=== PATIENT | female | born 1985 | race Caucasian/White ===

== ENCOUNTER 2017-05-22 11:09 | Emergency (ER) | payer OTHER ==
[2017-05-22] MEDS ORDERED: ONDANSETRON HCL INJ/PF 4 MG/2 ML SDV IV ONE ×2 (11:23→13:11)
[2017-05-22] MEDS ORDERED: NORMAL SALINE 1000 ML 1,000 ML IV ONE ×2 (11:23→12:42)
[2017-05-22] MEDS ORDERED: METOCLOPRAMIDE HCL INJ/PF 10 MG/2 ML SDV IV ONE ×2 (11:30→12:40)
--- NOTE | 2017-05-22 11:33 | ER Document Report ---
ED General - General Chief Complaint: Abdominal Cramping Stated Complaint: NAUSEA/VOMITING Time Seen by Provider: 05/22/17 11:23 Mode of Arrival: Ambulatory Information source: Patient Notes: 31-year-old female presents with complaints of nausea vomiting diarrhea since last night. Patient notes multiple episodes of vomiting and diarrhea. Patient ate some steak kebab last night and believes this may have caused his symptoms. Denies any fevers TRAVEL OUTSIDE OF THE [place] IN LAST 30 DAYS: No - HPI Onset: Yesterday Onset/Duration: Sudden Quality of pain: Cramping Severity: Mild Pain Level: 1 Associated symptoms: Diarrhea, Nausea, Vomiting Exacerbated by: Denies Relieved by: Denies Similar symptoms previously: No Recently seen / treated by doctor: No - Related Data Allergies/Adverse Reactions: No Known Drug Allergies Allergy (Verified 02/02/13 13:43) Past Medical History - Social History Smoking Status: Never Smoker Cigarette use (# per day): No Chew tobacco use (# tins/day): No Smoking Education Provided: No Family History: Reviewed & Not Pertinent Patient has suicidal ideation: No Patient has homicidal ideation: No Renal/ Medical History: Denies: Hx Peritoneal Dialysis Past Surgical History: Reports: Hx Dilation and Curettage - and LEEP, colpo in 2001, Hx Orthopedic Surgery - right shoulder, right wrist - Immunizations Immunizations up to date: Yes Hx Diphtheria, Pertussis, Tetanus Vaccination: Yes Review of Systems - Review of Systems Notes: REVIEW OF SYSTEMS: CONSTITUTIONAL : Denies fever, chills, or sweats. Denies recent illness. EENT: Denies eye, ear, throat, or mouth pain or symptoms. Denies nasal or sinus congestion or discharge. Denies throat, tongue, or mouth swelling or difficulty swallowing. CARDIOVASCULAR: Denies chest pain. Denies palpitations or racing or irregular heart beat. Denies ankle edema. RESPIRATORY: Denies cough, cold, or chest congestion. Denies shortness of breath, difficulty breathing, or wheezing. GASTROINTESTINAL: Admits to nausea vomiting diarrhea abdominal cramping GENITOURINARY: Denies difficulty urinating, painful urination, burning, frequency, blood in urine, or discharge. FEMALE GENITOURINARY: Denies vaginal bleeding, heavy or abnormal periods, irregular periods. Denies vaginal discharge or odor. MUSCULOSKELETAL: Denies back or neck pain or stiffness. Denies joint pain or swelling. SKIN: Denies rash, lesions or sores. HEMATOLOGIC : Denies easy bruising or bleeding. LYMPHATIC: Denies swollen, enlarged glands. NEUROLOGICAL: Denies confusion or altered mental status. Denies passing out or loss of consciousness. Denies dizziness or lightheadedness. Denies headache. Denies weakness or paralysis or loss of use of either side. Denies problems with gait or speech. Denies sensory loss, numbness, or tingling. Denies seizures. PSYCHIATRIC: Denies anxiety or stress. Denies depression, suicidal ideation, or homicidal ideation. ALL OTHER SYSTEMS REVIEWED AND NEGATIVE. PHYSICAL EXAMINATION: GENERAL: Pale appearing female no significant distress HEAD: Atraumatic, normocephalic. EYES: Pupils equal round and reactive to light, extraocular movements intact, conjunctiva are normal. LUNGS: Breath sounds clear to auscultation bilaterally and equal. No wheezes rales or rhonchi. HEART: Noted to be mildly tachycardic ABDOMEN: Soft, nontender, nondistended abdomen. No guarding, no rebound. No masses appreciated. Female : deferred Musculoskeletal: Normal range of motion, no pitting or edema. No cyanosis. NEUROLOGICAL: Cranial nerves grossly intact. Normal speech, normal gait. Normal sensory, motor exams PSYCH: Normal mood, normal affect. SKIN: Warm, Dry, normal turgor, no rashes or lesions noted. Dictation was performed using [employer] voice recognition software Physical Exam - Vital signs Vitals: Temp Pulse Resp BP Pulse Ox 97.9 F 105 H 21 H 128/80 H 100 05/22/17 11:18 05/22/17 11:18 05/22/17 11:18 05/22/17 11:18 05/22/17 11:18 Course - Re-evaluation Re-evalutation: 05/22/17 11:34 Patient has probable viral GI symptoms, lab work and IV fluids nausea control pending 05/22/17 15:58 Notes symptoms have improved significantly, will DC home with close follow-up After performing a Medical Screening Examination, I estimate there is LOW risk for ACUTE APPENDICITIS, BOWEL OBSTRUCTION, ACUTE CHOLECYSTITIS, PERFORATED DIVERTICULITIS, INCARCERATED HERNIA, PANCREATITIS, PELVIC INFLAMMATORY DISEASE, PERFORATED ULCER, ECTOPIC , or TUBO-OVARIAN ABSCESS, thus I consider the discharge disposition reasonable. Also, there is no evidence or peritonitis , sepsis, or toxicity. I have reevaluated this patient multiple times and no significant life threatening changes are noted. The patient and I have discussed the diagnosis and risks, and we agree with discharging home with close follow-up with the understanding that symptoms and presentations can change. We also discussed returning to the Emergency Department immediately if new or worsening symptoms occur. We have discussed the symptoms which are most concerning (e.g., bloody stool, fever, changing or worsening pain, vomiting) that necessitate immediate return. - Vital Signs Vital signs: Temp Pulse Resp BP Pulse Ox 99.8 F 89 12 106/54 L 94 05/22/17 15:23 05/22/17 15:23 05/22/17 15:23 05/22/17 15:23 05/22/17 15:23 - Laboratory Result Diagrams: 05/22/17 13:20 05/22/17 13:20 Laboratory results interpreted by me: 05/22/17 05/22/17 05/22/17 13:20 13:20 14:28 WBC 11.8 H Seg Neutrophils % 91.4 H Lymphocytes % 5.4 L Monocytes % 2.7 L Absolute Neutrophils 10.8 H Chloride 111 H Carbon Dioxide 21 L Calcium 8.1 L Urine Ketones 20 H Urine Blood SMALL H Discharge - Discharge Clinical Impression: Nausea vomiting and diarrhea Abdominal pain Qualifiers: Abdominal location: generalized Qualified Code(s): R10.84 - Generalized abdominal pain Condition: Stable Disposition: HOME, SELF-CARE Instructions: Abdominal Pain ([facility]) Additional Instructions: Follow up with your physician tomorrow for further care or return to the ED IMMEDIATELY if symptoms worsen or new concerns occur. If you cannot afford to follow up with your primary care physician a list of low cost clinics have been provided at the end of your discharge papers as well. Prescriptions: Ondansetron HCl [Zofran 8 mg Tablet] 8 mg PO Q8HP PRN #30 tablet PRN Reason: Metoclopramide HCl [Reglan 10 mg Tablet] 1 - 2 tab PO ASDIR PRN #25 tablet PRN Reason:
[2017-05-22] MEDS ORDERED: DICYCLOMINE HCL INJ 20 MG/2 ML AMPULE IM ONE (11:35)
[2017-05-22] MEDS: NORMAL SALINE 1000 ML 1,000 ML IV PRN ×2 (11:49→12:57)
[2017-05-22] MEDS ORDERED: PROMETHAZINE HCL 25 MG TABLET PO ONE (12:25)
[2017-05-22] MEDS ORDERED: PROMETHAZINE HCL INJ 25 MG/1 ML VIAL IM ONE (12:39)
[2017-05-22 13:45] LABS: ABSOLUTE LYMPHOCYTES (AUTO) 0.6 10^3/uL (0.5-4.7); ABSOLUTE MONOCYTES (AUTO) 0.3 10^3/uL (0.1-1.4); ABSOLUTE NEUT (AUTO) 10.8 10^3/uL (1.7-8.2); BASOPHILS % (AUTO) 0.1 % (0-2); EOSINOPHILS % (AUTO) 0.4 % (0-6); HEMATOCRIT 40.5 % (36.0-47.0); HEMOGLOBIN 13.4 g/dL (12.0-15.5); HGB HCT DIFFERENCE -0.3; LYMPHOCYTES % (AUTO) 5.4 % (13-45); MEAN CORPUSCULAR HEMOGLOBIN 28.7 pg (27.0-33.4); MEAN CORPUSCULAR HGB CONC 33.2 g/dL (32.0-36.0); MEAN CORPUSCULAR VOLUME 86 fl (80-97); MONOCYTES % (AUTO) 2.7 % (3-13); RED BLOOD COUNT 4.68 10^6/uL (3.72-5.28); RED CELL DISTRIBUTION WIDTH 12.4 % (11.5-14.0); SEGMENTED NEUTROPHILS % (AUTO) 91.4 % (42-78); WHITE BLOOD COUNT 11.8 10^3/uL (4.0-10.5)
[2017-05-22 13:50] LABS: ALANINE AMINOTRANSFERASE 40 U/L (9-52); ALBUMIN 3.9 g/dL (3.5-5.0); ALKALINE PHOSPHATASE 74 U/L (38-126); ANION GAP 11 (5-19); ASPARTATE AMINO TRANSFERASE 27 U/L (14-36); BILIRUBIN,DIRECT 0.2 mg/dL (0.0-0.4); BILIRUBIN,TOTAL 0.8 mg/dL (0.2-1.3); BLOOD UREA NITROGEN 13 mg/dL (7-20); CALCIUM 8.1 mg/dL (8.4-10.2); CARBON DIOXIDE 21 mmol/L (22-30); CHLORIDE 111 mmol/L (98-107); CREATININE RESULT 0.57 mg/dL (0.52-1.25); GLUCOSE 98 mg/dL (75-110); LIPASE 63.8 U/L (23-300); POTASSIUM 4.4 mmol/L (3.6-5.0); SODIUM 142.7 mmol/L (137-145)
[2017-05-22 15:25] VITALS: BP 106/54
[2017-05-22 15:26] LABS: APPEARANCE,URINE CLEAR; BILIRUBIN,URINE NEGATIVE (NEGATIVE); GLUCOSE, URINE NEGATIVE (NEGATIVE); KETONES,URINE 20 mg/dL (NEGATIVE); LEUKOCYTE ESTERASE,URINE NEGATIVE (NEGATIVE); NITRITE,URINE NEGATIVE (NEGATIVE); PROTEIN,URINE NEGATIVE (NEGATIVE); URINE SPECIFIC GRAVITY 1.009; UROBILINOGEN,URINE NEGATIVE mg/dL (<2.0)
== END 2017-05-22 16:10 | disposition home or self-care (01) ==
LOC: ER 11:09
DX: R11.2 Nausea with vomiting, unspecified (principal); R19.7 Diarrhea, unspecified; R10.84 Generalized abdominal pain; R00.0 Tachycardia, unspecified
CPT/HCPCS: 96376; 99284; 96372; 96374; 96375; 36415; 83690; 85025; 81025; 80053; 81001; J0500; J2765; J2550; J2405; J7030

== ENCOUNTER 2017-09-24 21:44 | Emergency (ER) | payer OTHER ==
[2017-09-24] MEDS ORDERED: NORMAL SALINE 1000 ML 1,000 ML IV ONE (22:12)
[2017-09-24] MEDS ORDERED: HYDROMORPHONE HCL INJ/PF 2 MG/ML AMPULE IV ONE (22:12)
[2017-09-24] MEDS ORDERED: ONDANSETRON HCL INJ/PF 4 MG/2 ML SDV IV ONE (22:12)
--- NOTE | 2017-09-24 22:13 | ER Document Report ---
ED GI/ - General Chief Complaint: Epigastric Pain Stated Complaint: RIGHT UPPER QUADRANT PAIN Time Seen by Provider: 09/24/17 21:59 Mode of Arrival: Ambulatory Information source: Patient Notes: Patient presents complaining of right upper quadrant abdominal pain that started suddenly around 7 PM after eating. Patient does complain of some nausea. Patient denies any vomiting or diarrhea. Patient states that pain will radiate to her back. Patient denies any fever or cough. Patient does state that she feels like she may have had a urinary tract infection last week for which she took a single dose of Bactrim but had an allergic reaction and did not take any more of the antibiotic. TRAVEL OUTSIDE OF THE [place] IN LAST 30 DAYS: No - HPI Patient complains to provider of: Abdominal pain. No: Diarrhea, Flank pain, Vomiting Onset: This evening Timing/Duration: Sudden Quality of pain: Sharp Pain Level: 4 Location: RUQ Vaginal bleeding (Compared to normal period): None Associated symptoms: Nausea. denies: Diarrhea, Fever, Loss of appetite, Urinary hesitancy, Urinary frequency, Urinary retention, Urinary urgency, Vomiting Exacerbated by: Denies Relieved by: Denies Similar symptoms previously: No Recently seen / treated by doctor: No - Related Data Allergies/Adverse Reactions: Penicillins Allergy (Verified 09/24/17 21:50) sulfamethoxazole [From Bactrim] Allergy (Verified 09/24/17 21:50) trimethoprim [From Bactrim] Allergy (Verified 09/24/17 21:50) Past Medical History - General Information source: Patient Last Menstrual Period: 08/31/2017 - Social History Smoking Status: Current Every Day Smoker Frequency of alcohol use: None Drug Abuse: None Occupation: Nursing Lives with: Family Family History: Reviewed & Not Pertinent Patient has suicidal ideation: No Patient has homicidal ideation: No Renal/ Medical History: Denies: Hx Peritoneal Dialysis Musculoskeltal Medical History: Reports Hx Arthritis - RA Past Surgical History: Reports: Hx Dilation and Curettage - and LEEP, colpo in 2001, Hx Orthopedic Surgery - right shoulder, right wrist - Immunizations Immunizations up to date: Yes Hx Diphtheria, Pertussis, Tetanus Vaccination: Yes Review of Systems - Review of Systems Constitutional: Recent illness - UTI. denies: Fever EENT: No symptoms reported Cardiovascular: No symptoms reported. denies: Chest pain Respiratory: No symptoms reported. denies: Cough, Short of breath Gastrointestinal: Abdominal pain, Nausea. denies: Diarrhea, Vomiting Genitourinary: Dysuria. denies: Flank pain Female Genitourinary: No symptoms reported Musculoskeletal: Back pain - Abdominal pain will occasionally radiate to the back Skin: No symptoms reported Hematologic/Lymphatic: No symptoms reported Neurological/Psychological: No symptoms reported Physical Exam - Vital signs Vitals: Temp Pulse Resp BP Pulse Ox 98.4 F 93 20 132/86 H 100 09/24/17 21:48 09/24/17 21:48 09/24/17 21:48 09/24/17 21:48 09/24/17 21:48 - General General appearance: Appears well, Alert In distress: None - HEENT Head: Normocephalic, Atraumatic Eyes: Normal Conjunctiva: Normal Nasal: Normal Mouth/Lips: Normal Mucous membranes: Dry Neck: Normal, Supple. No: Lymphadenopathy - Respiratory Respiratory status: No respiratory distress Chest status: Nontender Breath sounds: Normal. No: Rales, Rhonchi, Stridor, Wheezing Chest palpation: Normal - Cardiovascular Rhythm: Regular Heart sounds: S1 appreciated, S2 appreciated Murmur: No - Abdominal Inspection: Normal Distension: No distension Bowel sounds: Normal Tenderness: Tender - RUQ Organomegaly: No organomegaly - Back Back: Normal, Nontender. No: CVA tenderness - Extremities General upper extremity: Normal inspection, Normal ROM General lower extremity: Normal inspection, Normal ROM - Neurological Neuro grossly intact: Yes Cognition: Normal [place] Coma Scale Eye Opening: Spontaneous [place] Coma Scale Verbal: Oriented Je Coma Scale Motor: Obeys Commands [place] Coma Scale Total: 15 - Psychological Associated symptoms: Normal affect, Normal mood - Skin Skin Temperature: Warm Skin Moisture: Dry Skin Color: Normal Course - Re-evaluation Re-evalutation: 09/25/17 Patient presents with abdominal pain without signs of peritonitis or other life- threatening or serious etiology. Patient appears stable for discharge and has been instructed to return immediately if the symptoms worsen in any way for reevaluation. - Vital Signs Vital signs: Temp Pulse Resp BP Pulse Ox 98.4 F 93 16 111/76 99 09/24/17 21:48 09/24/17 21:48 09/25/17 00:01 09/25/17 00:00 09/25/17 00:01 - Laboratory Result Diagrams: 09/24/17 22:20 09/24/17 22:20 Laboratory results interpreted by me: 09/24/17 09/24/17 22:20 22:34 Potassium 3.5 L BUN 6 L Urine Protein 30 H Urine Urobilinogen 2.0 H Ur Leukocyte Esterase MODERATE H Labs- Entire Visit 09/24/17 09/24/17 09/24/17 22:20 22:20 22:20 WBC 7.6 RBC 4.48 Hgb 13.4 Hct 38.5 MCV 86 MCH 29.8 MCHC 34.7 RDW 12.6 Plt Count 253 Seg Neutrophils % 51.4 Lymphocytes % 39.7 Monocytes % 6.9 Eosinophils % 1.3 Basophils % 0.7 Absolute Neutrophils 3.9 Absolute Lymphocytes 3.0 Absolute Monocytes 0.5 Absolute Eosinophils 0.1 Absolute Basophils 0.1 Sodium 144.7 Potassium 3.5 L Chloride 107 Carbon Dioxide 28 Anion Gap 10 BUN 6 L Creatinine 0.62 Est GFR ( Amer) > 60 Est GFR (Non-Af Amer) > 60 Glucose 89 Calcium 9.3 Total Bilirubin 0.6 Direct Bilirubin 0.3 Indirect Bilirubin Not Reportable Neonat Total Bilirubin Not Reportable AST 22 ALT 43 Alkaline Phosphatase 50 Total Protein 6.5 Albumin 3.9 Lipase 74.1 Serum HCG, Qual NEGATIVE Urine Color Urine Appearance Urine pH Ur Specific [place] Urine Protein Urine Glucose (UA) Urine Ketones Urine Blood Urine Nitrite Urine Bilirubin Urine Urobilinogen Ur Leukocyte Esterase Urine WBC (Auto) Urine RBC (Auto) Squamous Epi Cells Auto Urine Mucus (Auto) Urine Ascorbic Acid 09/24/17 22:34 WBC RBC Hgb Hct MCV MCH MCHC RDW Plt Count Seg Neutrophils % Lymphocytes % Monocytes % Eosinophils % Basophils % Absolute Neutrophils Absolute Lymphocytes Absolute Monocytes Absolute Eosinophils Absolute Basophils Sodium Potassium Chloride Carbon Dioxide Anion Gap BUN Creatinine Est GFR ( Amer) Est GFR (Non-Af Amer) Glucose Calcium Total Bilirubin Direct Bilirubin Indirect Bilirubin Neonat Total Bilirubin AST ALT Alkaline Phosphatase Total Protein Albumin Lipase Serum HCG, Qual Urine Color YELLOW Urine Appearance SLIGHTLY-CLOUDY Urine pH 5.0 Ur Specific [place] 1.025 Urine Protein 30 H Urine Glucose (UA) NEGATIVE Urine Ketones NEGATIVE Urine Blood NEGATIVE Urine Nitrite NEGATIVE Urine Bilirubin NEGATIVE Urine Urobilinogen 2.0 H Ur Leukocyte Esterase MODERATE H Urine WBC (Auto) 19 Urine RBC (Auto) 2 Squamous Epi Cells Auto 7 Urine Mucus (Auto) MOD Urine Ascorbic Acid NEGATIVE - Diagnostic Test Radiology reviewed: Reports reviewed Discharge - Discharge Clinical Impression: Nausea, Hypokalemia Abdominal pain Qualifiers: Abdominal location: right upper quadrant Qualified Code(s): R10.11 - Right upper quadrant pain UTI (urinary tract infection) Qualifiers: Urinary tract infection type: site unspecified Hematuria presence: without hematuria Qualified Code(s): N39.0 - Urinary tract infection, site not specified Condition: Stable Disposition: HOME, SELF-CARE Instructions: Abdominal Pain ([facility]), Antinausea Medication ([facility]), Cephalexin ( [facility]), Hypokalemia ([facility]), Urinary Tract Infection ([facility]) Additional Instructions: Return immediately for any new or worsening symptoms Followup with your primary care provider, call Tuesday to make a followup appointment It is possible you may need additional imaging studies to further evaluate the functioning of your gallbladder. Prescriptions: Cephalexin Monohydrate [Keflex 500 mg Capsule] 500 mg PO BID 7 Days capsule Dicyclomine HCl [Bentyl 20 mg Tablet] 20 mg PO QID PRN #10 tablet PRN Reason: Ondansetron HCl [Zofran 4 mg Tablet] 1 - 2 tab PO Q6 PRN #15 tablet PRN Reason: Referrals: EDIE PINK FNP [Primary Care Provider] - 09/26/17
[2017-09-24 22:31] LABS: ABSOLUTE BASOPHILS # (AUTO) 0.1 10^3/uL (0.0-0.2); ABSOLUTE EOSINOPHILS # (AUTO) 0.1 10^3/uL (0.0-0.6); ABSOLUTE MONOCYTES (AUTO) 0.5 10^3/uL (0.1-1.4); ABSOLUTE NEUT (AUTO) 3.9 10^3/uL (1.7-8.2); BASOPHILS % (AUTO) 0.7 % (0-2); EOSINOPHILS % (AUTO) 1.3 % (0-6); HEMATOCRIT 38.5 % (36.0-47.0); HEMOGLOBIN 13.4 g/dL (12.0-15.5); HGB HCT DIFFERENCE 1.7; LYMPHOCYTES % (AUTO) 39.7 % (13-45); MEAN CORPUSCULAR HEMOGLOBIN 29.8 pg (27.0-33.4); MEAN CORPUSCULAR HGB CONC 34.7 g/dL (32.0-36.0); MEAN CORPUSCULAR VOLUME 86 fl (80-97); MONOCYTES % (AUTO) 6.9 % (3-13); RED BLOOD COUNT 4.48 10^6/uL (3.72-5.28); RED CELL DISTRIBUTION WIDTH 12.6 % (11.5-14.0); SEGMENTED NEUTROPHILS % (AUTO) 51.4 % (42-78); WHITE BLOOD COUNT 7.6 10^3/uL (4.0-10.5)
[2017-09-24 22:52] LABS: ALANINE AMINOTRANSFERASE 43 U/L (9-52); ALBUMIN 3.9 g/dL (3.5-5.0); ALKALINE PHOSPHATASE 50 U/L (38-126); ANION GAP 10 (5-19); ASPARTATE AMINO TRANSFERASE 22 U/L (14-36); BILIRUBIN,DIRECT 0.3 mg/dL (0.0-0.4); BILIRUBIN,TOTAL 0.6 mg/dL (0.2-1.3); BLOOD UREA NITROGEN 6 mg/dL (7-20); CALCIUM 9.3 mg/dL (8.4-10.2); CARBON DIOXIDE 28 mmol/L (22-30); CHLORIDE 107 mmol/L (98-107); CREATININE RESULT 0.62 mg/dL (0.52-1.25); GLUCOSE 89 mg/dL (75-110); LIPASE 74.1 U/L (23-300); POTASSIUM 3.5 mmol/L (3.6-5.0); SODIUM 144.7 mmol/L (137-145); TOTAL PROTEIN 6.5 g/dL (6.3-8.2)
[2017-09-24 22:52] LABS: APPEARANCE,URINE SLIGHTLY-CLOUDY; BILIRUBIN,URINE NEGATIVE (NEGATIVE); GLUCOSE, URINE NEGATIVE (NEGATIVE); KETONES,URINE NEGATIVE (NEGATIVE); LEUKOCYTE ESTERASE,URINE MODERATE (NEGATIVE); NITRITE,URINE NEGATIVE (NEGATIVE); PROTEIN,URINE 30 mg/dL (NEGATIVE); URINE SPECIFIC GRAVITY 1.025
--- NOTE | 2017-09-24 23:10 | RADIOLOGY REPORT (SQ) ---
EXAM DESCRIPTION: U/S ABDOMEN LIMITED W/O DOP COMPLETED DATE/TIME: 09/24/2017 11:00 pm REASON FOR STUDY: RUQ pain COMPARISON: None. TECHNIQUE: Dynamic and static grayscale images acquired of the abdomen and recorded on PACS. Additio nal selected color Doppler and spectral images recorded. LIMITATIONS: None. FINDINGS: PANCREAS: No masses. Visualized pancreatic duct normal caliber. LIVER: No masses. Echotexture normal. LIVER VASCULATURE: Normal directional flow of the main portal vein and hepatic veins. GALLBLADDER: No stones. Normal wall thickness. No pericholecystic fluid. ULTRASOUND-DETECTED PHILLIPS'S SIGN: Negative. INTRAHEPATIC DUCTS AND COMMON DUCT: CBD and intrahepatic ducts normal caliber. No filling defects. AORTA: No aneurysm. RIGHT KIDNEY: Normal size. Normal echogenicity. No solid or suspicious masses. No hydronephrosis. No calcifications. PERITONEAL AND RIGHT PLEURAL SPACE: No ascites or effusions. OTHER: No other significant findings. IMPRESSION: NORMAL RIGHT UPPER QUADRANT ULTRASOUND. TECHNICAL DOCUMENTATION: JOB ID: [id number] [employer]- All Rights Reserved
[2017-09-25] MEDS ORDERED: CEPHALEXIN 500 MG CAPSULE PO ONE (00:12)
[2017-09-25] MEDS ORDERED: POTASSIUM CHLORIDE 10 MEQ TABLET.SA PO ONE (00:12)
[2017-09-25 00:23] VITALS: BP 111/76
== END 2017-09-25 00:30 | disposition home or self-care (01) ==
LOC: ER 21:44
DX: N39.0 Urinary tract infection, site not specified (principal); E87.6 Hypokalemia; R10.11 Right upper quadrant pain; R11.0 Nausea; F17.200 Nicotine dependence, unspecified, uncomplicated; Z88.0 Allergy status to penicillin; Z88.1 Allergy status to other antibiotic agents
CPT/HCPCS: 99284; 96361; 96374; 96375; 36415; 87086; 83690; 84703; 85025; 80053; 81001; 76705; J1170; J2405; J7030

== ENCOUNTER 2019-05-06 17:32 | Emergency (ER) | payer OTHER ==
[2019-05-06] MEDS ORDERED: PROMETHAZINE HCL INJ 25 MG/1 ML VIAL IM ONE (19:14)
--- NOTE | 2019-05-06 19:16 | ER Document Report ---
Addendum entered and electronically signed by GEORGETTE DE SOUZA PA-C 05/06/19 19:22: Course - Re-evaluation Re-evalutation: 05/06/19 19:22 Correction: + mild rt CVAT - Vital Signs Vital signs: Temp Pulse Resp BP Pulse Ox 99.2 F 102 H 15 135/85 H 95 05/06/19 17:41 05/06/19 17:41 05/06/19 17:41 05/06/19 17:41 05/06/19 17:41 Original Note: ED Medical Screen (RME) - General Chief Complaint: Nausea/Vomiting/Diarrhea Stated Complaint: NAUSEA/VOMITING Time Seen by Provider: 05/06/19 19:14 Primary Care Provider: EDIE PINK FNP [Primary Care Provider] - Follow up as needed TRAVEL OUTSIDE OF THE [place] IN LAST 30 DAYS: No - HPI Notes: 05/06/19 19:15 Patient is a 33-year-old female with a history of appendectomy who presents complaining of nausea, vomiting, watery diarrhea that began today. Patient states that she ate out yesterday, but does not recall any raw or new foods. Patient states that she has right upper quadrant abdominal pain and abdominal cramping associated. Pain does not radiate. She is tried Zofran at home with minimal relief. Last menstrual period was earlier this month. No other vaginal bleeding, odor, discharge. Denies REYNOSO, fever, neck pain, URI, CP, SOB, dysuria, back pain, or rash. I have treated and performed a rapid initial assessment of this patient. A comprehensive ED assessment and evaluation of the patient, analysis of test results and completion of medical decision making process will be conducted by additional ED providers. PHYSICAL EXAMINATION: GENERAL: Well-appearing, well-nourished and in no acute distress. A&Ox4. Answers questions appropriately. LUNGS: Breath sounds clear to auscultation bilaterally and equal. No wheezes rales or rhonchi. HEART: Regular rate and rhythm without murmurs, rubs, gallops. ABDOMEN: Soft, nondistended abdomen. No guarding, no rebound. Normal bowel sounds present. No CVA tenderness bilaterally. + RUQ/epigastric tenderness (cannot elicit thorough abd exam w/o bed, however). - Related Data Allergies/Adverse Reactions: acetaminophen [From Percocet] Allergy (Verified 05/06/19 17:33) oxycodone [From Percocet] Allergy (Verified 05/06/19 17:33) Penicillins Allergy (Verified 09/24/17 21:50) sulfamethoxazole [From Bactrim] Allergy (Verified 09/24/17 21:50) trimethoprim [From Bactrim] Allergy (Verified 09/24/17 21:50) Past Medical History - Social History Chew tobacco use (# tins/day): No Frequency of alcohol use: Occasional Drug Abuse: None Renal/ Medical History: Denies: Hx Peritoneal Dialysis Musculoskeltal Medical History: Reports Hx Arthritis - RA Past Surgical History: Reports: Hx Dilation and Curettage - and LEEP, colpo in 2001, Hx Orthopedic Surgery - right shoulder, right wrist - Immunizations Immunizations up to date: Yes Hx Diphtheria, Pertussis, Tetanus Vaccination: Yes Physical Exam - Vital signs Vitals: Temp Pulse Resp BP Pulse Ox 99.2 F 102 H 15 135/85 H 95 05/06/19 17:41 05/06/19 17:41 05/06/19 17:41 05/06/19 17:41 05/06/19 17:41 Course - Vital Signs Vital signs: Temp Pulse Resp BP Pulse Ox 99.2 F 102 H 15 135/85 H 95 05/06/19 17:41 05/06/19 17:41 05/06/19 17:41 05/06/19 17:41 05/06/19 17:41 Doctor's Discharge - Discharge Referrals: EDIE PINK FNP [Primary Care Provider] - Follow up as needed
[2019-05-06] MEDS: NORMAL SALINE 1000 ML 1,000 ML IV PRN ×2 (19:35→22:35)
[2019-05-06 19:50] LABS: APPEARANCE,URINE SLIGHTLY-CLOUDY; BILIRUBIN,URINE NEGATIVE (NEGATIVE); COLOR,URINE YELLOW; GLUCOSE, URINE NEGATIVE (NEGATIVE); KETONES,URINE 20 mg/dL (NEGATIVE); LEUKOCYTE ESTERASE,URINE NEGATIVE (NEGATIVE); NITRITE,URINE NEGATIVE (NEGATIVE); PROTEIN,URINE NEGATIVE (NEGATIVE); URINE SPECIFIC GRAVITY 1.025; UROBILINOGEN,URINE NEGATIVE mg/dL (<2.0)
[2019-05-06] MEDS ORDERED: DIPHENHYDRAMINE HCL 50 MG/ML VIAL IV ONE (19:54)
[2019-05-06] MEDS ORDERED: ONDANSETRON HCL INJ/PF 4 MG/2 ML SDV IV ONE (19:54)
[2019-05-06 19:55] LABS: ABSOLUTE LYMPHOCYTES (AUTO) 0.9 10^3/uL (0.5-4.7); ABSOLUTE MONOCYTES (AUTO) 0.2 10^3/uL (0.1-1.4); ABSOLUTE NEUT (AUTO) 9.1 10^3/uL (1.7-8.2); BASOPHILS % (AUTO) 0.1 % (0-2); EOSINOPHILS % (AUTO) 0.2 % (0-6); HEMATOCRIT 43.3 % (36.0-47.0); HEMOGLOBIN 14.6 g/dL (12.0-15.5); LYMPHOCYTES % (AUTO) 9.1 % (13-45); MEAN CORPUSCULAR HGB CONC 33.8 g/dL (32.0-36.0); MEAN CORPUSCULAR VOLUME 86 fl (80-97); MONOCYTES % (AUTO) 2.2 % (3-13); PLATELET COUNT 365 10^3/uL (150-450); RED BLOOD COUNT 5.04 10^6/uL (3.72-5.28); RED CELL DISTRIBUTION WIDTH 12.4 % (11.5-14.0); SEGMENTED NEUTROPHILS % (AUTO) 88.4 % (42-78); TOTAL CELLS COUNTED % (AUTO) 100 %; WHITE BLOOD COUNT 10.2 10^3/uL (4.0-10.5)
[2019-05-06] MEDS ORDERED: FAMOTIDINE INJ/PF 20 MG/2 ML SDV IV ONE (19:55)
--- NOTE | 2019-05-06 19:58 | ER Document Report ---
ED General - General Chief Complaint: Nausea/Vomiting/Diarrhea Stated Complaint: NAUSEA/VOMITING Time Seen by Provider: 05/06/19 19:14 Primary Care Provider: EDIE PINK FNP [NO LOCAL MD] - Follow up in 3-5 days Mode of Arrival: Ambulatory Information source: Patient Notes: 33-year-old female with no significant past medical history presents with complaint of nausea, vomiting, diarrhea and abdominal pain. Patient states that she awoke at 530 this morning vomiting and has had multiple episodes of nonbilious non-bloody emesis. Patient states that she had a 3 episodes of diarrhea which have now resolved. Patient believes that she has food poisoning from eating [employer] last night. She denies any sick contacts, fever, chills, dysuria, back pain, chest pain, shortness of breath. Patient did attempt to take ODT Zofran prior to arrival but was still unable to tolerate any food or fluids. Patient also complaining of generalized abdominal cramping. TRAVEL OUTSIDE OF THE [place] IN LAST 30 DAYS: No - HPI Onset: This morning Onset/Duration: Sudden Quality of pain: Cramping Severity: Mild Associated symptoms: Diarrhea, Nausea, Vomiting. denies: Chest pain, Fever, Hurts to breath, Leg swelling, Shortness of breath, Slow to respond Exacerbated by: Food Relieved by: Denies Similar symptoms previously: No Recently seen / treated by doctor: No - Related Data Allergies/Adverse Reactions: acetaminophen [From Percocet] Allergy (Verified 05/06/19 17:33) oxycodone [From Percocet] Allergy (Verified 05/06/19 17:33) Penicillins Allergy (Verified 09/24/17 21:50) sulfamethoxazole [From Bactrim] Allergy (Verified 09/24/17 21:50) trimethoprim [From Bactrim] Allergy (Verified 09/24/17 21:50) Past Medical History - General Information source: Patient, [facility] Records - Social History Smoking Status: Current Some Day Smoker Cigarette use (# per day): Yes - 3 Chew tobacco use (# tins/day): No Smoking Education Provided: Yes Frequency of alcohol use: Occasional Drug Abuse: None Lives with: Spouse/Significant other Family History: Reviewed & Not Pertinent Patient has suicidal ideation: No Patient has homicidal ideation: No - Medical History Medical History: Negative Renal/ Medical History: Denies: Hx Peritoneal Dialysis Musculoskeletal Medical History: Reports Hx Arthritis - RA Past Surgical History: Reports: Hx Dilation and Curettage - and LEEP, colpo in 2002, Hx Orthopedic Surgery - right shoulder, right wrist - Immunizations Immunizations up to date: Yes Hx Diphtheria, Pertussis, Tetanus Vaccination: Yes Review of Systems - Review of Systems Notes: REVIEW OF SYSTEMS: CONSTITUTIONAL : Denies fever, chills, or sweats. Denies recent illness. Denies weight loss, recent hospitalizations. EENT: Denies visual changes, eye pain. Denies sore throat, oral lesions, difficulty swallowing. CARDIOVASCULAR: Denies chest pain. Denies palpitations. Denies lower extremity edema. RESPIRATORY: Denies cough. Denies shortness of breath, wheezing. GASTROINTESTINAL: Denies abdominal distention. Denies blood in vomitus, stools, or per rectum. Denies black, tarry stools. Denies constipation. GENITOURINARY: Denies difficulty urinating, painful urination, frequency, blood in urine, or vaginal discharge. MUSCULOSKELETAL: Denies back or neck pain or stiffness. Denies joint pain or swelling. SKIN: Denies rash, lesions or sores. HEMATOLOGIC : Denies easy bruising or bleeding. LYMPHATIC: Denies swollen glands. NEUROLOGICAL: Denies confusion or altered mental status. Denies loss of consciousness. Denies dizziness or lightheadedness. Denies headache. Denies weakness or paralysis. Denies problems difficulty with ambulation, slurred spee ch. Denies sensory loss, numbness, or tingling. Denies seizures. PSYCHIATRIC: Denies anxiety or stress. Denies depression, suicidal ideation, or homicidal ideation. Denies visual or auditory hallucinations. Physical Exam - Vital signs Vitals: Temp Pulse Resp BP Pulse Ox 99.2 F 102 H 15 135/85 H 95 05/06/19 17:41 05/06/19 17:41 05/06/19 17:41 05/06/19 17:41 05/06/19 17:41 - Notes Notes: PHYSICAL EXAMINATION: GENERAL: Well-appearing, well-nourished and in no acute distress. HEAD: Atraumatic, normocephalic. EYES: Pupils equal round and reactive to light, extraocular movements intact, conjunctiva are normal. ENT: Nares patent, oropharynx clear without exudates. Moist mucous membranes. NECK: Normal range of motion, supple without lymphadenopathy LUNGS: Breath sounds clear to auscultation bilaterally and equal. No wheezes rales or rhonchi. HEART: Regular rate and rhythm without murmurs ABDOMEN: Soft, nontender, nondistended abdomen. No guarding, no rebound. No masses appreciated. Female : deferred Musculoskeletal: Normal range of motion, no pitting or edema. No cyanosis. NEUROLOGICAL: Cranial nerves grossly intact. Normal speech, normal gait. Normal sensory, motor exams PSYCH: Normal mood, normal affect. SKIN: Warm, Dry, normal turgor, no rashes or lesions noted. Course - Re-evaluation Re-evalutation: Laboratory 05/06/19 05/06/19 05/06/19 19:25 19:37 19:37 WBC 10.2 RBC 5.04 Hgb 14.6 Hct 43.3 MCV 86 MCH 29.0 MCHC 33.8 RDW 12.4 Plt Count 365 Seg Neutrophils % 88.4 H Lymphocytes % 9.1 L Monocytes % 2.2 L Eosinophils % 0.2 Basophils % 0.1 Absolute Neutrophils 9.1 H Absolute Lymphocytes 0.9 Absolute Monocytes 0.2 Absolute Eosinophils 0.0 Absolute Basophils 0.0 Sodium 143.9 Potassium 4.0 Chloride 105 Carbon Dioxide 28 Anion Gap 11 BUN 12 Creatinine 0.66 Est GFR ( Amer) > 60 Est GFR (Non-Af Amer) > 60 Glucose 88 Calcium 9.6 Total Bilirubin 0.7 Direct Bilirubin 0.3 Neonat Total Bilirubin Not Reportable Neonat Direct Bilirubin Not Reportable Neonat Indirect Bili Not Reportable AST 43 H ALT 38 Alkaline Phosphatase 87 Total Protein 8.3 H Albumin 4.5 Lipase 42.0 Urine Color YELLOW Urine Appearance SLIGHTLY-CLOUDY Urine pH 5.0 Ur Specific [place] 1.025 Urine Protein NEGATIVE Urine Glucose (UA) NEGATIVE Urine Ketones 20 H Urine Blood SMALL H Urine Nitrite NEGATIVE Urine Bilirubin NEGATIVE Urine Urobilinogen NEGATIVE Ur Leukocyte Esterase NEGATIVE Urine WBC (Auto) 2 Urine RBC (Auto) 2 U Hyaline Cast (Auto) 1 Squamous Epi Cells Auto 3 Urine Mucus (Auto) MANY Urine Ascorbic Acid NEGATIVE Urine HCG, Qual NEGATIVE Temp Pulse Resp BP Pulse Ox 99.2 F 102 H 15 135/85 H 95 05/06/19 17:41 05/06/19 17:41 05/06/19 17:41 05/06/19 17:41 05/06/19 17:41 05/06/19 21:17 Presentation of an overall well-appearing patient in no acute distress with complaints of nausea, vomiting, diarrhea. This is consistent with likely viral gastroenteritis. Patient has no abdominal tenderness on exam and specifically no tenderness in the RLQ, LLQ, RUQ. Overall well hydrated on exam. Able to tolerate oral intake here in the emergency department. Low clinical suspicion for any acute life-threatening etiology based on exam and history including acute cholecystitis, SBO, appendicitis, nephrolithiasis, or pylonephritis. CMP without evidence of acute hepatitis or significant dehydration. Will plan for discharge at this time with return precautions and followup recommendations. 05/06/19 21:49 Patient was evaluated and treated as appropriate for the patient's presenting symptoms and complaint, with consideration of any critical or life threatening conditions that may be associated with their obtained history and exam as noted above. All results were discussed with patient . Patient provided the opportunity to ask questions, and express concerns. Patient was educated on treatments based on their presumed diagnosis as noted above. At this time we will discharge the patient with return precautions and follow-up recommendations. Verbal discharge instructions given a the bedside. Medication warnings reviewed. Patient is in agreement with this plan and has verbalized understanding of return precautions. After careful consideration I feel that that patient can be safely discharged from the emergency department, they were advised to followup with a primary care physician in 2-3 days. Dictation on this chart was performed using voice recognition software and may result in unintended grammatical, spelling, syntax or errors. - Vital Signs Vital signs: Temp Pulse Resp BP Pulse Ox 99.2 F 102 H 15 135/85 H 95 05/06/19 17:41 05/06/19 17:41 05/06/19 17:41 05/06/19 17:41 05/06/19 17:41 - Laboratory Result Diagrams: 05/06/19 19:37 05/06/19 19:37 Laboratory results interpreted by me: 05/06/19 05/06/19 05/06/19 19:25 19:37 19:37 Seg Neutrophils % 88.4 H Lymphocytes % 9.1 L Monocytes % 2.2 L Absolute Neutrophils 9.1 H AST 43 H Total Protein 8.3 H Urine Ketones 20 H Urine Blood SMALL H - Diagnostic Test Radiology reviewed: Image reviewed, Reports reviewed Discharge - Discharge Clinical Impression: Nausea vomiting and diarrhea Condition: Good Disposition: HOME, SELF-CARE Instructions: Diarrhea, Nonspecific ([facility]), Intravenous (IV) Fluids ([facility]), Reglan ([facility]), Vomiting ([facility]) Additional Instructions: Your symptoms are likely due to a viral illness and should resolve in the next several days. You can take dedx-ivh-hklftir loperamide also known as Imodium as needed for diarrhea per box instructions. Continue to stay hydrated with plenty of solution such as Gatorade or Pedialyte. You are being prescribed Zofran to take as needed for nausea and vomiting. Please return if you develop severe abdominal pain, pass out, become unable to tolerate any oral fluids for 12 more hours, or any other symptoms that are concerning to you. Prescriptions: Famotidine [Pepcid 40 mg Tablet] 40 mg PO DAILY #7 tablet Promethazine HCl [Phenergan 25 mg Tablet] 25 mg PO Q8H PRN #12 tablet PRN Reason: For Nausea/Vomiting Forms: Return to Work Referrals: EDIE PINK FNP [NO LOCAL MD] - Follow up in 3-5 days
[2019-05-06 20:11] LABS: ALANINE AMINOTRANSFERASE 38 U/L (9-52); ALBUMIN 4.5 g/dL (3.5-5.0); ALKALINE PHOSPHATASE 87 U/L (38-126); ANION GAP 11 (5-19); ASPARTATE AMINO TRANSFERASE 43 U/L (14-36); BILIRUBIN,DIRECT 0.3 mg/dL (0.0-0.4); BILIRUBIN,TOTAL 0.7 mg/dL (0.2-1.3); BLOOD UREA NITROGEN 12 mg/dL (7-20); CALCIUM 9.6 mg/dL (8.4-10.2); CARBON DIOXIDE 28 mmol/L (22-30); CHLORIDE 105 mmol/L (98-107); GLUCOSE 88 mg/dL (75-110); SODIUM 143.9 mmol/L (137-145); TOTAL PROTEIN 8.3 g/dL (6.3-8.2)
--- NOTE | 2019-05-06 21:36 | RADIOLOGY REPORT (SQ) ---
EXAM DESCRIPTION: [facility]: US ABDOMEN LIMITED CLINICAL HISTORY: 33 years Female; n/v/d, RUQ pain TECHNIQUE: Right upper quadrant ultrasound was performed. COMPARISON: Ultrasound 09/24/2017 FINDINGS: Pancreas: Visualized portions are unremarkable. Liver: 13 cm long Portal venous flow is hepatopedal, normal. Gallbladder: normal with no gallstones or sonographic evidence for acute cholecystitis. No pericholecystic fluid. No sonographic Sandoval's sign. Common bile duct: 2 mm. Right kidney: 10.7 x 3.7 x 5.2 cm. No hydronephrosis. IMPRESSION: 1. Normal right upper quadrant ultrasound.
[2019-05-06] MEDS ORDERED: RINGERS SOLUTION,LACTATED 1,000 ML IV ONE (23:22)
[2019-05-06] MEDS ORDERED: METOCLOPRAMIDE HCL INJ/PF 10 MG/2 ML SDV IV ONE (23:22)
[2019-05-07] MEDS ORDERED: DICYCLOMINE HCL INJ 20 MG/2 ML AMPULE IM ONE (00:09)
[2019-05-07] MEDS ORDERED: ONDANSETRON ODT 4 MG TAB (6 TAB/ER DISP) PO PRN (02:26)
[2019-05-07 02:30] VITALS: BP 95/55
== END 2019-05-07 02:35 | disposition home or self-care (01) ==
LOC: ER 17:32
DX: R11.2 Nausea with vomiting, unspecified (principal); R19.7 Diarrhea, unspecified; R10.9 Unspecified abdominal pain; F17.210 Nicotine dependence, cigarettes, uncomplicated; Z88.6 Allergy status to analgesic agent; Z88.0 Allergy status to penicillin; Z88.3 Allergy status to other anti-infective agents
CPT/HCPCS: 99284; 96372; 96361; 96374; 96375; 36415; 83690; 85025; 81025; 80053; 81001; 76705; J0500; J1200; J2765; J2550; J2405; J7030; J7120; S0028

== ENCOUNTER 2019-12-30 19:51 | Emergency (ER) | payer OTHER ==
--- NOTE | 2019-12-30 20:05 | ER Document Report ---
ED Medical Screen (RME) - General Chief Complaint: Laceration Stated Complaint: FINGER INJURY Time Seen by Provider: 12/30/19 20:00 Mode of Arrival: Ambulatory Information source: Patient Notes: 34-year-old female presented to ED for laceration to the right thumb just before arrival while cutting tomatoes. Last tetanus was May 2019. 10 weeks . 8 para 1. Patient is alert oriented respirations regular nonlabored speaking in full sentences. Patient finger bleeds as soon as you remove the dressing. Otherwise it is controlled. I have greeted and performed a rapid initial assessment of this patient. A comprehensive ED assessment and evaluation of the patient, analysis of test results and completion of medical decision making process will be conducted by an additional ED providers. TRAVEL OUTSIDE OF THE [place] IN LAST 30 DAYS: No - Related Data Allergies/Adverse Reactions: acetaminophen [From Percocet] Allergy (Verified 05/06/19 17:33) oxycodone [From Percocet] Allergy (Verified 05/06/19 17:33) Penicillins Allergy (Verified 09/24/17 21:50) sulfamethoxazole [From Bactrim] Allergy (Verified 09/24/17 21:50) trimethoprim [From Bactrim] Allergy (Verified 09/24/17 21:50) Past Medical History Renal/ Medical History: Denies: Hx Peritoneal Dialysis Musculoskeltal Medical History: Reports Hx Arthritis - RA Past Surgical History: Reports: Hx Dilation and Curettage - and LEEP, colpo in 2001, Hx Orthopedic Surgery - right shoulder, right wrist - Immunizations Immunizations up to date: Yes Hx Diphtheria, Pertussis, Tetanus Vaccination: Yes
[2019-12-30 20:06] VITALS: BP 131/65
--- NOTE | 2019-12-30 20:38 | ER Document Report ---
ED General - General Chief Complaint: Laceration Stated Complaint: FINGER INJURY Time Seen by Provider: 12/30/19 20:00 Mode of Arrival: Ambulatory Notes: Patient is a 34-year-old white female with no significant past medical history presents to the emergency department with a chief complaint of laceration to the dorsal right thumb that occurred just prior to arrival while trying to slice tomatoes. She states she immediately dropped the knife and took her finger to the sink and irrigated the wound copiously, cleaning it. She wrapped it with gauze and Eleanor wrap and came to the emergency department. Denies any numbness tingling or weakness. TRAVEL OUTSIDE OF THE [place] IN LAST 30 DAYS: No - Related Data Allergies/Adverse Reactions: acetaminophen [From Percocet] Allergy (Verified 05/06/19 17:33) oxycodone [From Percocet] Allergy (Verified 05/06/19 17:33) Penicillins Allergy (Verified 09/24/17 21:50) sulfamethoxazole [From Bactrim] Allergy (Verified 09/24/17 21:50) trimethoprim [From Bactrim] Allergy (Verified 09/24/17 21:50) Past Medical History - General Information source: Patient - Social History Smoking Status: Never Smoker Chew tobacco use (# tins/day): No Frequency of alcohol use: None Drug Abuse: None Family History: Reviewed & Not Pertinent Patient has suicidal ideation: No Patient has homicidal ideation: No Renal/ Medical History: Denies: Hx Peritoneal Dialysis Musculoskeletal Medical History: Reports Hx Arthritis - RA Past Surgical History: Reports: Hx Dilation and Curettage - and LEEP, colpo in 2001, Hx Orthopedic Surgery - right shoulder, right wrist - Immunizations Immunizations up to date: Yes Hx Diphtheria, Pertussis, Tetanus Vaccination: Yes Review of Systems - Review of Systems Skin: Other - Laceration -: Yes All other systems reviewed and negative Physical Exam - Vital signs Vitals: Temp Pulse Resp BP Pulse Ox 97.5 F 98 16 131/65 H 98 12/30/19 20:03 12/30/19 20:03 12/30/19 20:03 12/30/19 20:03 12/30/19 20:03 - General General appearance: Appears well, Alert In distress: None - Extremities General upper extremity: Nontender, Normal color, Normal ROM, Normal temperature, Other - Laceration to the right dorsal thumb between the MCP and IP. Wound edges well approximated. No foreign body visualized. Hemostasis maintained. Good capillary refill distally. Full strength of the affected thumb with and without resistance. - Neurological Neuro grossly intact: Yes Cognition: Normal Orientation: AAOx4 Gulliver Coma Scale Eye Opening: Spontaneous Je Coma Scale Verbal: Oriented Je Coma Scale Motor: Obeys Commands Gulliver Coma Scale Total: 15 Speech: Normal Motor strength normal: LUE, RUE, LLE, RLE Sensory: Normal - Psychological Associated symptoms: Normal affect, Normal mood - Skin Skin Temperature: Warm Skin Moisture: Dry Skin Color: Other - Normal except affected area of laceration Course - Re-evaluation Re-evalutation: 12/30/19 21:14 Patient tolerated wound repair well. She will not get the wound wet for 24 hours. She is placed in a thumb splint to keep the wound immobilized. It is not over the flexor surface and should hold nicely. She will keep the area clean covered and dry. Counseled her at length regarding the importance of outpatient follow-up and advised she return here or any ER immediately with any new, persistent or worsening symptoms. She verbalized understood and agreed. - Vital Signs Vital signs: Temp Pulse Resp BP Pulse Ox 97.5 F 98 16 131/65 H 98 12/30/19 20:03 12/30/19 20:03 12/30/19 20:03 12/30/19 20:03 12/30/19 20:03 Procedures - Laceration/Wound Repair Right Finger Thumb Time completed: 21:13 Wound length (cm): 1.5 Wound's Depth, Shape: Superficial, Linear Wound explored: Clean Wound Repaired With: Dermabond Layer Closure?: No Post-procedure wound care: Splint applied Post-procedure NV exam normal: Yes Complications: No Discharge - Discharge Clinical Impression: Thumb laceration Qualifiers: Encounter type: initial encounter Damage to nail status: unspecified Foreign body presence: unspecified Laterality: unspecified laterality Qualified Code(s): S61.019A - Laceration without foreign body of unspecified thumb without damage to nail, initial encounter Condition: Stable Disposition: HOME, SELF-CARE Instructions: Skin Adhesive Closure ([facility]) Additional Instructions: Follow-up with your regular doctor in 2 to 3 days for reevaluation. Return here or any ER immediately with any new, persistent or worsening symptoms.
== END 2019-12-30 21:22 | disposition home or self-care (01) ==
LOC: ER 19:51
PROC: 0HQFXZZ Repair Right Hand Skin, External Approach (ICD-10-PCS; principal; 2019-12-30)
DX: S61.011A Laceration without foreign body of right thumb without damage to nail, initial encounter (principal); W26.0XXA Contact with knife, initial encounter; Z88.8 Allergy status to other drugs, medicaments and biological substances; Z88.0 Allergy status to penicillin
CPT/HCPCS: 99282

== ENCOUNTER 2020-07-04 15:55 | Outpatient (CLI) | payer BC ==
--- NOTE | 2020-07-04 16:39 | Non Stress Test Report ---
Non Stress Test Datetime Report Generated by CPN: 07/04/2020 16:39 DEMOGRAPHIC EGA NST: 37.2 INDICATION Indication for Study (NST) Other: AMA VITAL SIGNS Temperature - NST: 98.3 Pulse - NST: 68 RESP - NST: 16 NBPSYS NST: 107 NBPDIA NST: 63 MONITORING Monitor Explained: Monitor Explained; Test Explained; Patient Verbalized Understanding Time on Monitor: 07/04/2020 16:10 Time off Monitor: 07/04/2020 16:35 NST Duration: 25 NST INTERVENTIONS NST Interventions: PO Hydration Physician Notified NST: J.Kaur,CNM BABY A: [id number] BABY A Movement : Present Contraction Frequency : None FHR Baseline : 130 Accelerations : 15X15 Decelerations : None Variability : Moderate 6-25bpm NST Review: Meets Criteria for Reactive NST NST Review and Verified By : JNieneli,RN NST Results: Reactive NST REPORT Report Trigger: Send Report
== END 2020-07-04 16:43 | disposition home or self-care (01) ==
LOC: LC 15:55
PROVIDERS: ATTEND Student in an Organized Health Care Education/Training Program
DX: O09.513 Supervision of elderly primigravida, third trimester (principal); Z3A.37 37 weeks gestation of pregnancy
CPT/HCPCS: 59025

== ENCOUNTER 2020-07-27 21:15 | Inpatient (IN) | payer BC ==
[2020-07-27 21:56] LABS: APPEARANCE,URINE CLEAR; BILIRUBIN,URINE NEGATIVE (NEGATIVE); COLOR,URINE YELLOW; GLUCOSE, URINE NEGATIVE (NEGATIVE); KETONES,URINE NEGATIVE (NEGATIVE); LEUKOCYTE ESTERASE,URINE TRACE (NEGATIVE); NITRITE,URINE NEGATIVE (NEGATIVE); PROTEIN,URINE NEGATIVE (NEGATIVE); URINE SPECIFIC GRAVITY 1.012; UROBILINOGEN,URINE NEGATIVE mg/dL (<2.0)
[2020-07-27 22:18] LABS: URINE AMPHETAMINES SCREEN NEGATIVE; URINE BARBITURATES SCREEN NEGATIVE; URINE BENZODIAZEPINES SCREEN NEGATIVE; URINE COCAINE SCREEN NEGATIVE; URINE MARIJUANA (THC) SCREEN NEGATIVE; URINE METHADONE SCREEN NEGATIVE; URINE PHENCYCLIDINE SCREEN NEGATIVE
[2020-07-27] MEDS ORDERED: ONDANSETRON 4 MG TAB.RAPDIS ONE (23:15)
[2020-07-27] MEDS ORDERED: ONDANSETRON 4 MG TAB.RAPDIS PO ONE (23:16)
[2020-07-27] MEDS ORDERED: LIDOCAINE 1% INJ-PF (10 MG/ML) 30 ML SDV ONE (23:23)
[2020-07-27] MEDS ORDERED: OXYTOCIN/0.9 % SODIUM CHLORIDE 30 UNIT/500 ML RTUINJ ONE (23:23)
[2020-07-27] MEDS ORDERED: MISOPROSTOL 0.2 MG TABLET ONE (23:23)
[2020-07-27] MEDS ORDERED: OXYTOCIN 10 UNIT/ML VIAL ONE (23:23)
--- NOTE | 2020-07-27 23:38 | Admission Physical ---
Datetime Report Generated by CPN: 07/27/2020 23:38 CURRENT ADMISSION Chief Complaint: Uterine Contractions Indication for Induction: Not Applicable Admit Impression : Term, Intrauterine Admit Plan: Admit to Unit; Initiate Labor Protocol ALLERGIES Medication Allergies: Yes Medication Allergies: Penicillins (07/04/2020); oxycodone (07/04/2020); acetaminophen (07/04/2020); sulfamethoxazole (07/04/2020); trimethoprim (07/04/2020) Latex: No Latex Allergies Food Allergies: none Environmental Allergies: none OBSTETRICAL HISTORY EDC: 07/23/2020 00:00 : 8 Para: 1 Term: 1 : 0 SAB: 4 IAB: 2 Ectopic: 0 Livin Cesareans: 0 VBACs: 0 Multiple Births: 0 Gestational Diabetes: No Rh Sensitization: No Incompetent Cervix: No DONTAE: No Infertility: No ART Treatment: No Uterine Anomaly: No IUGR: No Hx Previous C/S: No Macrosomia: No Hx Loss/Stillborn: No PIH: No Hx : No Placenta Previa/Abruption: No Depression/PP Depression: No PTL/PROM: No Post Hemorrhage: No Current Procedures: Ultrasound; NST Obstetrical History Comments: EAB G2 EAB EAB G5-09/25/2010 39 weeks G6- G7 G8- current SEE RECORDS Alcohol: No Marijuana : No Cocaine: No Other Illicit Drugs: No Cigarettes: Former Smoker. [id number] Cigarette Comments: quit smoking MEDICAL HISTORY Diabetes: No Blood Transfusion: No Pulmonary Disease (Asthma, TB): No Breast Disease: No Hypertension: No Appeals Reviewer Veteran Surgery: No Heart Disease: No Hosp/Surgery: Yes Autoimmune Disorder: Yes Anesthetic Complications: No Kidney Disease: No Abnormal Pap Smear: Yes Neuro/Epilepsy: No Psychiatric Disorders: Yes Other Medical Diseases: No Hepatitis/Liver Disease: No Significant Family History: No Varicosities/Phlebitis: No Trauma/Violence : No Thyroid Dysfunction: No Medical History Comments: rhematoid arthitis, anxiety, high grade in 2001 with leep, appendectomy (2014), right wrist carpal tunnel (2004), right shoulder rotator x 2 (2010 _ 2015), d _ c, septoplasty (2011), breast augmentation, kidney stones with hydronephrosis, PTL with kidney stone. INFECTIOUS HISTORY Gonorrhea: No Genital Herpes: No Chlamydia: Yes Tuberculosis: No Syphilis: No Hepatitis: No HIV/AIDS Exposure: No Rash or Viral Illness: No HPV: No Infectious History Comments: chlamydia- 2014 PHYSICAL EXAM General: Normal HEENT: Normal Neurologic: Normal Thyroid: Normal Heart: Normal Lungs: Normal Breast: Deferred Back: Normal Abdomen: Normal Genitourinary Exam: Normal Extremities: Normal DTRs: Normal Pelvic Type: Adequate Vital Signs: Reviewed VAGINAL EXAM Dilatation: 10 Effacement: 100 MEMBRANES Pooling: Negative Membranes: Intact FETUS A EGA: 40.4 Monitoring: External US FHR- Baseline: 120 Variability: Moderate 6-25bpm Decelerations: None FHR Category: Category I Estimated Weight (gm): 3800 Presentation: Vertex Admit Comment: admit for labor PLANS FOR LABOR AND DELIVERY Labor and Delivery: None Pain Management: Epidural Feeding Preference: Breast Benefit of Breast Feed Discussed: Yes Circumcision: N/A INFORMED CONSENT Signature: Electronically signed by Trinity Hair MD ([facility]) on 07/27/2020 at 23:30 with User ID: [email or web address]
[2020-07-28] MEDS ORDERED: ACETAMINOPHEN 650 MG SUPP.RECT PR PRN (00:18)
[2020-07-28] MEDS ORDERED: PROMETHAZINE HCL INJ 25 MG/1 ML VIAL IV PRN (00:18)
[2020-07-28] MEDS ORDERED: DIBUCAINE 1% OINTMENT 28 GM TP PRN (00:18)
[2020-07-28] MEDS ORDERED: PSEUDOEPHEDRINE HCL 30 MG TABLET PO PRN (00:18)
[2020-07-28] MEDS ORDERED: ZOLPIDEM TARTRATE 5 MG TABLET PO PRN (00:18)
[2020-07-28] MEDS ORDERED: MAGNESIUM HYDROXIDE SUSP 30 ML UDCUP PO PRN (00:18)
[2020-07-28] MEDS ORDERED: BENZOCAINE/MENTHOL AEROSOL SPRAY 56 ML TOP PRN (00:18)
[2020-07-28] MEDS ORDERED: OXYTOCIN/0.9 % SODIUM CHLORIDE 30 UNIT/500 ML RTUINJ IV PRN (00:18)
[2020-07-28] MEDS ORDERED: DIPH/PERTUSS(ACELL)/TETANUS VAC/PF 0.5 ML SYR (>=10YO) IM PRN (00:18)
[2020-07-28] MEDS ORDERED: PROMETHAZINE HCL 25 MG SUPP.RECT PR PRN (00:18)
[2020-07-28] MEDS ORDERED: NA PHOS,M-B/NA PHOS,DI-BA (ADULT) 133 ML ENEMA PR PRN (00:18)
[2020-07-28] MEDS ORDERED: DIPHENHYDRAMINE HCL 25 MG CAPSULE PO PRN (00:18)
[2020-07-28] MEDS ORDERED: ACETAMINOPHEN WITH CODEINE #3 TABLET PO PRN ×2 (00:18)
[2020-07-28] MEDS ORDERED: GLYCERIN/WITCH HAZEL LEAF 1 EACH MED..WIPE TP PRN (00:18)
[2020-07-28] MEDS ORDERED: PROMETHAZINE HCL 25 MG TABLET PO PRN (00:18)
[2020-07-28] MEDS ORDERED: MEASLES,MUMPS&RUBELLA VACC/PF 0.5 ML VIAL SUBCUT PRN (00:18)
[2020-07-28] MEDS ORDERED: ACETAMINOPHEN WITH CODEINE #3 TABLET ONE (00:18)
[2020-07-28] MEDS ORDERED: RINGERS SOLUTION,LACTATED 1,000 ML IV ONE (00:33)
[2020-07-28 00:58] LABS: ABSOLUTE LYMPHOCYTES (AUTO) 1.6 10^3/uL (0.5-4.7); ABSOLUTE MONOCYTES (AUTO) 0.5 10^3/uL (0.1-1.4); ABSOLUTE NEUT (AUTO) 13.7 10^3/uL (1.7-8.2); BASOPHILS % (AUTO) 0.2 % (0-2); EOSINOPHILS % (AUTO) 0.2 % (0-6); HEMATOCRIT 34.7 % (36.0-47.0); HEMOGLOBIN 11.9 g/dL (12.0-15.5); LYMPHOCYTES % (AUTO) 10.1 % (13-45); MEAN CORPUSCULAR HEMOGLOBIN 29.5 pg (27.0-33.4); MEAN CORPUSCULAR HGB CONC 34.3 g/dL (32.0-36.0); MEAN CORPUSCULAR VOLUME 86 fl (80-97); MONOCYTES % (AUTO) 3.1 % (3-13); PLATELET COUNT 243 10^3/uL (150-450); RED BLOOD COUNT 4.03 10^6/uL (3.72-5.28); RED CELL DISTRIBUTION WIDTH 13.1 % (11.5-14.0); SEGMENTED NEUTROPHILS % (AUTO) 86.4 % (42-78); TOTAL CELLS COUNTED % (AUTO) 100 %; WHITE BLOOD COUNT 15.8 10^3/uL (4.0-10.5)
--- NOTE | 2020-07-28 01:45 | Warning Signs in Babies ---
VOD Warning Signs Datetime Report Generated by [facility]: 07/28/2020 01:45 VOD#608 -Warning Signs in Babies: Viewed with Parent(s)/Family (07/28/2020 00:45:Mayuri Rose RN)
--- NOTE | 2020-07-28 01:52 | Birth Certificate Data ---
Cert Data Datetime Report Generated by CPJim: 07/28/2020 01:52 CERTIFICATE DATA 47a. Care: Yes (07/04/2020 16:03:Nadya Gramajo RN) 47b. Date of First Visit: 12/19/2019 00:00 (07/04/2020 16:03:Nadya Gramajo RN) 47c. Date of Last Visit: 07/23/2020 00:00 (07/04/2020 16:03:Nadya Gramajo RN) 47d. Number of Visits: 13 (07/04/2020 16:03:Nadya Gramajo RN) 48a. Number of Prev Live Births: 1 (07/04/2020 16:03:Nadya Gramajo RN) 48b. Now Livin (07/04/2020 16:03:Nadya Gramajo RN) 48c. Live Births Now : 0 (07/04/2020 16:03:QS system process) 48d. Date of Last Live : 09/25/2010 00:00 (07/04/2020 16:03:Nadya Gramajo RN) 48e. Losses: 6 (07/04/2020 16:03:Nadya Grmaajo RN) RISK FACTORS IN THIS 49a. Diabetes: No (07/04/2020 16:03:Mayuri Rose RN) 49b. Hypertension: No (07/04/2020 16:03:Mayuri Rose RN) 49c. Previous Births: 0 (07/04/2020 16:03:Nadya Gramajo RN) 49d. Stillborns: No (07/04/2020 16:03:Mayuri Rose RN) 49d. IUGR: No (07/04/2020 16:03:Mayuri Rose RN) 49e. Infertility Treatment: No (07/04/2020 16:03:Mayuri Rose RN) 49f. Previous Cesareans: 0 (07/04/2020 16:03:Nadya Gramajo RN) Mother's Height 50b. Height Inches: 756 (07/27/2020 21:27:QS system process) Mother's Weight 51a. Pre- Weight (lbs): 153 (07/04/2020 16:03:Mayuri Rose RN) 51b. Weight at Delivery (lbs): 176 (07/27/2020 21:27:QS system process) 52. Dt Last Normal Menses Began: 10/28/2019 00:00 (07/04/2020 16:03:Nadya Gramajo RN) Infections Present/Treated 53a. Gonorrhea: No (07/04/2020 16:03:Mayuri Rose RN) Results this Hospital Visit : Negative (07/04/2020 16:03:Nadya Gramajo RN) 53b. Syphilis: No (07/04/2020 16:03:Mayuri Rose RN) 53c. Chlamydia: Yes (07/04/2020 16:03:Nadya Gramajo RN) Results this Hospital Visit: Negative (07/04/2020 16:03:Nadya Gramajo RN) 53d. Hepatitis B: No (07/04/2020 16:03:Mayuri Rose RN) Results this Hospital Visit: Negative (07/04/2020 16:03:Nadya Gramajo RN) 53h. Mother Tested for HBsAG: Yes (07/04/2020 16:03:Mayuri Rose RN) 53i. Date Tested: 12/19/2019 00:00 (07/04/2020 16:03:Mayuri Rose RN) 53j. Test Result: Negative (07/04/2020 16:03:Nadya Gramajo RN) Obstetric Procedures 54a, b, c. Obstetric Procedures: Ultrasound; NST (07/04/2020 16:03:Mayuri Rose RN) Cigarette Smoking 55a. Packs: 1 (07/04/2020 16:03:Mayuri Rose RN) 55b. 1st Trimester of Preg- Ci (07/04/2020 16:03:Mayuri Rose RN) 55c. 2nd Trimester of Preg- Ci (07/04/2020 16:03:Mayuri Rose RN) Onset of Labor 56a. PROM >12 Hrs: 0.43 (07/04/2020 16:03:QS system process) 56b. Precipitous Labor <3 Hrs: 4 (07/04/2020 16:03:QS system process) 56c. Prolonged Labor > 20 Hrs: 4 (07/04/2020 16:03:QS system process) 57a. Induction of Labor: N/A (07/04/2020 16:03:Riddhi Osorio RN) 57c. Non-Vertex Presentation A: Vertex (07/04/2020 16:03:Riddhi Osorio RN) 57d. Steroids - Lung Mat: None (07/04/2020 16:03:Riddhi Osorio RN) 57d. Steroids - Lung Mat: Not Applicable (07/04/2020 16:03:Riddhi Osorio RN) 57f. Mat [place] or Temp >100.4: 98.0 (07/04/2020 16:03:Mayuri Rose RN) 57g. Moderate/Heavy Meconium: Clear (07/27/2020 23:39:Mayuri Rose RN) 57h. Intolerance of Labor: N/A (07/04/2020 16:03:Riddhi Osorio RN) : N/A (07/04/2020 16:03:Riddhi Osorio RN) 57i. Epidural/Spinal Anesthesia: None (07/04/2020 16:03:Riddhi Osorio RN) Method of Delivery 58a. Forceps - Unsuccessful A: N/A (07/04/2020 16:03:Riddhi Osorio RN) 58b. Vacuum - Unsuccessful A: N/A (07/04/2020 16:03:Riddhi Osorio RN) 58c. Presentation at 58c. Presentation at - A : Vertex (07/04/2020 16:03:Riddhi Osorio RN) 58c. Presentation at - A : N/A (07/04/2020 16:03:Riddhi Osorio RN) 58c. Presentation at - A : Cephalic (07/04/2020 16:03:Riddhi Osorio RN) Final Route and Method of Del 58d. Baby A Route/Delivery: Vaginal (07/28/2020 00:05:Mayuri Rose RN) 58e. Trial of Labor Attempted: No (07/04/2020 16:03:Riddhi Osorio RN) 58e. Trial of Labor Attempted A: N/A (07/04/2020 16:03:Riddhi Osorio RN) 58e. Trial of Labor Attempted B: N/A (07/04/2020 16:03:Riddhi Osorio RN) Maternal Morbidity 59b. 3rd or 4th Degree Lacs: None (07/04/2020 16:03:Trinity Hair MD ([facility] Birthweight Baby A: 3390 (07/04/2020 16:03:Mayuri Rose RN) 60a. Pounds : 7 (07/04/2020 16:03:QS system process) 60b. Ounces: 8 (07/04/2020 16:03:QS system process) 61. GA at Delivery Baby A: 40.5 (07/04/2020 16:03:Riddhi Osorio RN) : Full Term- 39- 40.6 Weeks (07/04/2020 16:03:QS system process) 62a. 5 Minute Baby A: 9 (07/04/2020 16:03:QS system process)
--- NOTE | 2020-07-28 01:52 | Delivery Summary ---
Del Sum A-C Datetime Report Generated by CPN: 07/28/2020 01:52 DELIVERY PERSONNEL DELIVERY PERSONNEL: [id number] Delivery Doctor:: Trinity Hair MD Labor and Delivery Nurse:: Mayuri Rose RN Nursery Nurse:: Hillary Campos RN Stuffer/[employer] GRADER: Joana Ross, ST MATERNAL INFORMATION Delivery Anesthesia: None Medications After Delivery: Pitocin 30 Units in 500ml NS/D5W; Cytotec 1000mcg Per Rectum/Vagina Delivery QBL: 250 Maternal Complications: None LABOR SUMMARY EDC: 07/23/2020 00:00 No. Babies in Womb: 1 Attempted: No Labor Anesthesia: None LABOR INFORMATION Reason for Induction: Not Applicable Onset of Labor: 07/27/2020 19:30 Complete Dilatation: 07/27/2020 23:39 Oxytocin: N/A Group B Beta Strep: Negative Antibiotics # of Doses: 0 Name of Antibiotic Given: n/a Steroids Given: None Reason Steroids Not Administered: Not Applicable MEMBRANES Membranes Rupture Method: Artificial Rupture of Membranes: 07/27/2020 23:39 Length of Rupture (hr): 0.43 Amniotic Fluid Color: Clear Amniotic Fluid Amount: Small Amniotic Fluid Odor: Normal STAGES OF LABOR Stage 1 hr: 4 Stage 1 min: 9 Stage 2 hr: 0 Stage 2 min: 26 Stage 3 hr: 0 Stage 3 min: 3 Total Time in Labor hr: 4 Total Time in Labor min: 38 VAGINAL DELIVERY Episiotomy: None Laceration #1: None Laceration Extension #1: N/A Laceration #2: None Laceration Extension #2: N/A Laceration #3: None Laceration Extension #3: N/A Laceration Repair: Not Applicable Sponge Count Correct: Yes Sharps Count Correct: Yes CSECTION DELIVERY Primary Indication: N/A Secondary Indication: N/A CSection Incidence: N/A Labor: N/A Elective: N/A BABY A INFORMATION Infant Delivery Date/Time: 07/28/2020 00:05 Method of Delivery: Vaginal Nurse Controlled Delivery: No Born in Route : No : N/A Forceps: N/A Vacuum Extraction: N/A Shoulder Dystocia : No PRESENTATION/POSITION BABY A Presentation: Cephalic Cephalic Presentation: Vertex Vertex Position: Left Occipital Anterior Breech Presentation: N/A PLACENTA INFORMATION BABY A Placenta Delivery Time : 07/28/2020 00:08 Placenta Method of Delivery: Spontaneous Placenta Status: Delivered SCORES BABY A Heart Rate 1 min: >100 bpm Resp Effort 1 min: Slow, Irregular Reflex Irritability 1 min: Cough or Sneeze or Pulls Away Muscle Tone 1 min: Active Motion Color 1 min: Blue/Pale Resuscitation Effort 1 min: Tactile Stimulation SCORE 1 MIN: 7 Heart Rate 5 min: >100 bpm Resp Effort 5 min: Good Cry Reflex Irritability 5 min: Cough or Sneeze or Pulls Away Muscle Tone 5 min: Active Motion Color 5 min: Body [place], Extremities Blue SCORE 5 MIN: 9 INFORMATION BABY A Gestational Age at Delivery: 40.5 Gestational Status: Full Term- 39- 40.6 Weeks Infant Outcome : Liveborn Condition : Stable Sex: Female IDENTIFICATION BABY A Verification Date/Time: 07/28/2020 00:30 ID Band Number: [id number] Mother's Name Verified: Yes Infant RN Verifying Infant: Nehemias Rose, ANA MARIA Additional Verifying Personnel: Trinidad Osorio RN WEIGHT/LENGTH BABY A Infant Birthweight (gm): 3390 Infant Weight (lb): 7 Infant Weight (oz): 8 Length (in): 19.50 Length (cm): 49.53 CORD INFORMATION BABY A No. Cord Vessels: 3 Nuchal Cord : Around Neck x1, Tight Cord Blood Taken: Yes-For Storage (Mom's Blood type +) Suction: None ASSESSMENT BABY A Complications: None Physical Findings at Delivery: Within Normal Limits Skin to Skin: Yes Skin to Skin Time (min): 60 Transferred To: Remains with Mother BABY B INFORMATION : N/A SIGNATURES Signature: with User ID: [email or web address]
[2020-07-28] MEDS: IBUPROFEN 800 MG TABLET PO SCH ×3 (05:03→21:14)
--- NOTE | 2020-07-28 09:27 | PDOC PROGRESS REPORT ---
Subjective-OB Progress Note for:: 07/28/20 Subjective: Doing well, hsb holding baby, mod lochia, , after afterbirth pains Physical Exam (OB) Vital Signs: Temp Pulse Resp BP Pulse Ox 98.9 F 85 18 105/63 98 07/28/20 07:11 07/28/20 07:11 07/28/20 07:11 07/28/20 07:11 07/28/20 07:11 Intake & Output 07/27/20 07/28/20 07/29/20 06:59 06:59 06:59 Output Total 300 Balance -300 Weight 80 kg - PIH/Pre-Eclampsia DTR's: 2 + Clonus: Negative Headache: Absent Epigastric Pain: No Visual Changes: No - Maternal Morbidity 59. Maternal Morbidity (serious complications experinced by the mother associated with labor and delivery: None of the above - Lochia Lochia Amount: Small 10-25 ml Lochia Color: Rubra/Red - Abdomen Description: Soft Hernia Present: No Fundal Description: Firm, Midline Fundal Height: u/u - u/2 Objective-Diagnostic Laboratory: 07/28/20 00:46 07/27/20 07/28/20 07/28/20 21:30 00:46 00:46 WBC 15.8 H RBC 4.03 Hgb 11.9 L Hct 34.7 L MCV 86 MCH 29.5 MCHC 34.3 RDW 13.1 Plt Count 243 Seg Neutrophils % 86.4 H Urine Color YELLOW Urine Appearance CLEAR Urine pH 7.0 Ur Specific [place] 1.012 Urine Protein NEGATIVE Urine Glucose (UA) NEGATIVE Urine Ketones NEGATIVE Urine Blood NEGATIVE Urine Nitrite NEGATIVE Ur Leukocyte Esterase TRACE H Blood Type O POSITIVE Antibody Screen NEGATIVE Assessment and Plan(PN) - Assessment and Plan (1) Anxiety Is this a current diagnosis for this admission?: Yes (2) Delivery normal Is this a current diagnosis for this admission?: Yes (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
[2020-07-28] MEDS ORDERED: ACETAMINOPHEN 325 MG TABLET ONE (09:33)
[2020-07-28] MEDS: FAMOTIDINE 20 MG TABLET PO SCH ×2 (09:35→21:14)
[2020-07-28] MEDS: FERROUS SULFATE 325 MG TABLET PO SCH ×2 (09:35→18:43)
[2020-07-28] MEDS: SENNOSIDES/DOCUSATE 8.6-50 MG 1 EACH TABLET PO SCH (09:35)
[2020-07-28] MEDS: PRENATAL VITAMIN W DHA CAPSULE PO SCH (09:35)
[2020-07-28] MEDS: DOCUSATE SODIUM 100 MG CAPSULE PO SCH ×2 (09:35→18:43)
[2020-07-28] MEDS ORDERED: ACETAMINOPHEN 325 MG TABLET PO PRN (10:17)
[2020-07-29] MEDS: IBUPROFEN 800 MG TABLET PO SCH (05:05)
[2020-07-29 08:21] LABS: HEMATOCRIT 28.4 % (36.0-47.0); HEMOGLOBIN 9.9 g/dL (12.0-15.5); MEAN CORPUSCULAR HEMOGLOBIN 30.1 pg (27.0-33.4); MEAN CORPUSCULAR HGB CONC 34.8 g/dL (32.0-36.0); MEAN CORPUSCULAR VOLUME 86 fl (80-97); PLATELET COUNT 193 10^3/uL (150-450); RED BLOOD COUNT 3.28 10^6/uL (3.72-5.28); RED CELL DISTRIBUTION WIDTH 13.5 % (11.5-14.0); WHITE BLOOD COUNT 11.2 10^3/uL (4.0-10.5)
[2020-07-29 08:27] VITALS: BP 94/51
[2020-07-29] MEDS: FAMOTIDINE 20 MG TABLET PO SCH (09:41)
[2020-07-29] MEDS: PRENATAL VITAMIN W DHA CAPSULE PO SCH (09:41)
[2020-07-29] MEDS: FERROUS SULFATE 325 MG TABLET PO SCH (09:41)
[2020-07-29] MEDS: DOCUSATE SODIUM 100 MG CAPSULE PO SCH (09:41)
[2020-07-29] MEDS: SENNOSIDES/DOCUSATE 8.6-50 MG 1 EACH TABLET PO SCH (09:41)
--- NOTE | 2020-07-29 12:50 | PDOC DISCHARGE SUMMARY ---
Impression - Admit/DC Date/PCP Admission Date/Primary Care Provider: 07/27/20 23:30 SEAN MENESES MD Discharge Date: 07/29/20 - PP day #1, patient is requesting to go home today. O+. Rubella Immune, - Discharge Diagnosis (1) Normal course Is this a current diagnosis for this admission?: Yes (2) Anxiety Is this a current diagnosis for this admission?: Yes (3) Delivery normal Is this a current diagnosis for this admission?: Yes (4) HSV-2 seropositive Is this a current diagnosis for this admission?: Yes (5) Post-dates , delivered, current hospitalization Is this a current diagnosis for this admission?: Yes - Additional Information Resuscitation Status: Full Code Discharge Diet: As Tolerated, Regular Discharge Activity: Activity As Tolerated, No Lifting Over 10 Pounds, Pelvic Rest Referrals: SEAN MENESES MD [Primary Care Provider] - Prescriptions: Ibuprofen [Motrin 800 mg Tablet] 800 mg PO Q8 #60 tablet Home Medications: Pnv No.103/Folic/Om3s/Fish Oil [ Gummies] 1 each PO DAILY 07/04/20 Valacyclovir HCl [Valtrex 500 mg Tablet] 500 mg PO DAILY 07/04/20 Ibuprofen [Motrin 800 mg Tablet] 800 mg PO Q8 #60 tablet 07/29/20 HPI Reason(s) for Admission: Onset of Labor Procedures: Ultrasound Intrapartum Procedure(s): Spontaneous Vaginal Delivery Hospital Course 59. Maternal Morbidity (serious complications experinced by the mother associated with labor and delivery: None of the above Results Laboratory Results: WBC 11.2 10^3/uL (4.0-10.5) H 07/29/20 07:12 RBC 3.28 10^6/uL (3.72-5.28) L 07/29/20 07:12 Hgb 9.9 g/dL (12.0-15.5) L 07/29/20 07:12 Hct 28.4 % (36.0-47.0) L 07/29/20 07:12 MCV 86 fl (80-97) 07/29/20 07:12 MCH 30.1 pg (27.0-33.4) 07/29/20 07:12 MCHC 34.8 g/dL (32.0-36.0) 07/29/20 07:12 RDW 13.5 % (11.5-14.0) 07/29/20 07:12 Plt Count 193 10^3/uL (150-450) 07/29/20 07:12 Lymph % (Auto) 10.1 % (13-45) L 07/28/20 00:46 [place] % (Auto) 3.1 % (3-13) 07/28/20 00:46 Eos % (Auto) 0.2 % (0-6) 07/28/20 00:46 Baso % (Auto) 0.2 % (0-2) 07/28/20 00:46 Absolute Neuts (auto) 13.7 10^3/uL (1.7-8.2) H 07/28/20 00:46 Absolute Lymphs (auto) 1.6 10^3/uL (0.5-4.7) 07/28/20 00:46 Absolute Monos (auto) 0.5 10^3/uL (0.1-1.4) 07/28/20 00:46 Absolute Eos (auto) 0.0 10^3/uL (0.0-0.6) 07/28/20 00:46 Absolute Basos (auto) 0.0 10^3/uL (0.0-0.2) 07/28/20 00:46 Seg Neutrophils % 86.4 % (42-78) H 07/28/20 00:46 Urine Color YELLOW 07/27/20 21:30 Urine Appearance CLEAR 07/27/20 21:30 Urine pH 7.0 (5.0-9.0) 07/27/20 21:30 Ur Specific [place] 1.012 07/27/20 21:30 Urine Protein NEGATIVE mg/dL (NEGATIVE) 07/27/20 21:30 Urine Glucose (UA) NEGATIVE mg/dL (NEGATIVE) 07/27/20 21:30 Urine Ketones NEGATIVE mg/dL (NEGATIVE) 07/27/20 21:30 Urine Blood NEGATIVE (NEGATIVE) 07/27/20 21:30 Urine Nitrite NEGATIVE (NEGATIVE) 07/27/20 21:30 Urine Bilirubin NEGATIVE (NEGATIVE) 07/27/20 21:30 Urine Urobilinogen NEGATIVE mg/dL (<2.0) 07/27/20 21:30 Ur Leukocyte Esterase TRACE (NEGATIVE) H 07/27/20 21:30 Urine Ascorbic Acid NEGATIVE (NEGATIVE) 07/27/20 21:30 Membranes Rupture NEGATIVE (NEGATIVE) 07/27/20 21:30 Urine Opiates Screen NEGATIVE 07/27/20 21:30 Urine Methadone Screen NEGATIVE 07/27/20 21:30 Ur Barbiturates Screen NEGATIVE 07/27/20 21:30 Ur Phencyclidine Scrn NEGATIVE 07/27/20 21:30 Ur Amphetamines Screen NEGATIVE 07/27/20 21:30 U Benzodiazepines Scrn NEGATIVE 07/27/20 21:30 Urine Cocaine Screen NEGATIVE 07/27/20 21:30 U Marijuana (THC) Screen NEGATIVE 07/27/20 21:30 RPR NONREACTIVE (NONREACTIVE) 07/28/20 00:46 Blood Type O POSITIVE 07/28/20 00:46 Antibody Screen NEGATIVE 07/28/20 00:46 Plan Plan of Treatment: d/c home. F/up with [facility] in 4 wks for PP check Time Spent: Less than 30 Minutes
[2020-07-30 11:38] LABS: HEPATITIS C VIRUS AB <0.1 s/co ratio (0.0-0.9)
== END 2020-07-29 14:18 | disposition home or self-care (01) | DRG 806 ==
LOC: LC 21:15 → LR 23:30 → 2N 07-28 02:25
PROVIDERS: ADMIT Obstetrics & Gynecology; ATTEND Obstetrics & Gynecology
PROC: 10907ZC Drainage of Amniotic Fluid, Therapeutic from Products of Conception, Via Natural or Artificial Opening (ICD-10-PCS; 2020-07-27)
PROC: 10E0XZZ Delivery of Products of Conception, External Approach (ICD-10-PCS; principal; 2020-07-28)
DX: O48.0 Post-term pregnancy (principal); O98.32 Other infections with a predominantly sexual mode of transmission complicating childbirth; Z37.0 Single live birth; O99.344 Other mental disorders complicating childbirth; F41.9 Anxiety disorder, unspecified; A60.9 Anogenital herpesviral infection, unspecified; O69.1XX0 Labor and delivery complicated by cord around neck, with compression, not applicable or unspecified; Z03.818 Encounter for observation for suspected exposure to other biological agents ruled out; Z88.6 Allergy status to analgesic agent; Z88.0 Allergy status to penicillin; Z88.2 Allergy status to sulfonamides; Z87.891 Personal history of nicotine dependence; Z3A.40 40 weeks gestation of pregnancy
CPT/HCPCS: 36415; 80307; 81005; 84112; 85025; 85027; 86592; 86803; 86804; 86850; 86900; 86901; J2590; J3490; S0119